=== PATIENT | female | born 1960 | race Caucasian/White ===

== ENCOUNTER 2025-02-24 15:21 | Outpatient (REF) | payer BC, SELFPAY ==
--- NOTE | 2025-02-24 10:20 | PAPFT_PTH ---
PATIENT: Essie Bermeo LOC: [facility]#:[id number] AGE/SX: 64/F ROOM: RE02/24/[address]: Angelique Navarrete : 1960 BED: DIS: 02/24/2025 SPEC #: [id number] RECD: 02/24/25 16:05 STATUS: AUDREY REQ #: [id number] [place]: 02/24/25 10:[address]: Angelique Navarrete DEPT: [facility] Cytology RECD BY: Eusebia Harris ENTERED: 02/24/25 16:05 SP TYPE: PAPFT OTHR DR: Unknown,Unknown Tissues: 1 - CX/ENDOCX FOR PAP SMEARS Procedures: PAP THIN PREP/[facility] Screening HPV DNA PROBE Comments: [id number] (HPV 16 & 18/45)
== END 2025-02-24 15:22 | disposition home or self-care (01) ==
LOC: NCHCN 15:21
PROVIDERS: Visit Provider Family Medicine
DX: Z11.51 Encounter for screening for human papillomavirus (HPV) (principal); Z01.419 Encounter for gynecological examination (general) (routine) without abnormal findings
CPT/HCPCS: 88142; 87624

== ENCOUNTER 2025-04-08 13:46 | Outpatient (CLI) | payer BC, SELFPAY ==
--- NOTE | 2025-04-08 10:38 | DI.RAD_ITS ---
Exam(s) XR FOOT LT COMPLETE XR FOOT RT COMPLETE EXAM: XR FOOT LT COMPLETE CLINICAL HISTORY: pain LT FOOT,M79.672. TECHNIQUE: 2D digital imaging was performed. Three views of both feet. COMPARISON: CR XR FOOT RT COMPLETE from 04/08/2025 FINDINGS: BONES: No acute fracture is present. No bony destructive lesion is seen. JOINTS: No dislocation present. No significant degenerative changes. Plantar arches are maintained. Small plantar calcaneal spurs, left greater than right. SOFT TISSUE: Normal. IMPRESSION: Small heel spurs. DATA REPOSITORY: RADIATION DOSE DELIVERED:
== END 2025-04-08 14:06 ==
LOC: DI 13:46
PROVIDERS: PCP Family Medicine; Visit Provider Podiatrist
DX: M79.671 Pain in right foot (principal); M79.672 Pain in left foot; M77.32 Calcaneal spur, left foot; M77.31 Calcaneal spur, right foot
CPT/HCPCS: 73630